=== PATIENT | female | born 1940 | race Two or more races ===

== ENCOUNTER 2022-07-16 23:04 | Emergency (ER) | payer BC, OTHER ==
[~2022-07-16] VITALS: Ht 162.6 cm; Wt 54.4 kg
--- NOTE | 2022-07-16 23:30 | NUR ---
[facility] AND SON FROM [facility] FOR C/O ABD PAIN X 3 DAYS. KUB RESULT 07/13. NON- OBSTRUCTIVE BOWEL GAS PATTERN SHOWED. PATIENT IS AAOX4. HARD TO SPEAK. WEAKNESS OF RIGHT SIDE OF BODY. ATTACHED TO MONITOR. VITALS CHECKED.
[2022-07-17] MEDS ORDERED: ONDANSETRON HCL/PF 4 MG/2 ML VIAL ONE (00:05)
[2022-07-17] MEDS ORDERED: MORPHINE SULFATE INJ 2 MG/ML DISP.SYRIN ONE (00:05)
--- NOTE | 2022-07-17 00:23 | NUR ---
IV CANNULA G20 INSERTED ON LEFT AC. IVF ATTACHED
--- NOTE | 2022-07-17 00:23 | NUR ---
BROUGHT TO [facility] DEPT
[2022-07-17] MEDS: ONDANSETRON HCL/PF 4 MG/2 ML VIAL IVP ONE (00:29)
[2022-07-17] MEDS: MORPHINE SULFATE INJ 2 MG/ML DISP.SYRIN IV ONE (00:29)
[2022-07-17] MEDS: IV NS 0.9% 500 ML BAG IV ONE (00:29)
[2022-07-17 00:39] LABS: BASOPHILS % (AUTO) 0.4 % (0.0-2.0); EOSINOPHILS % (AUTO) 0.5 % (0.0-6.0); HEMATOCRIT 38 % (33-45); HEMOGLOBIN 12.2 g/dL (11.5-14.8); LYMPHOCYTES # (AUTO) 2.1 K/uL (0.8-4.8); LYMPHOCYTES % (AUTO) 26.2 % (20.0-44.0); MEAN CORPUSCULAR HGB CONC 33 g/dl (31.0-36.0); MEAN CORPUSCULAR VOLUME 85 fL (82-100); MONOCYTES # (AUTO) 0.8 K/uL (0.1-1.30); MONOCYTES % (AUTO) 10.4 % (2.0-12.0); NEUTROPHILS % (AUTO) 62.5 % (43.0-81.0); PLATELET COUNT (AUTO) 252 K/uL (150-450); RED BLOOD CELL COUNT(AUTO) 4.42 MIL/uL (4.0-5.2)
[2022-07-17 01:00] LABS: CALCIUM, SERUM 8.9 mg/dL (8.5-10.1); CARBON DIOXIDE 35 mmol/L (21-32); CHLORIDE 106 mmol/L (98-107); CREATININE 0.6 mg/dL (0.6-1.3); GLUCOSE 108 mg/dL (74-106); POTASSIUM 3.3 mmol/L (3.5-5.1); SODIUM SERUM 143 mmol/L (136-145); UREA NITROGEN, BLOOD 13 mg/dL (7-18)
[2022-07-17 01:06] LABS: ALANINE AMINOTRANSFERASE 9 U/L (12-78); ALBUMIN 2.2 g/dL (3.4-5.0); ALKALINE PHOSPHATASE 55 U/L (46-116); ASPARTATE AMINOTRANSFERASE 14 U/L (15-37); BILIRUBIN,DIRECT 0.1 mg/dL (0.0-0.2); BILIRUBIN,TOTAL 0.4 mg/dL (0.2-1.0); LIPASE 67 U/L (73-393); TOTAL PROTEIN, SERUM 5.5 g/dL (6.4-8.2)
--- NOTE | 2022-07-17 01:59 | NUR ---
KIZZY GOMEZ, SON,
[2022-07-17 02:50] LABS: BILIRUBIN,URINE NEGATIVE (NEGATIVE); COLOR,URINE YELLOW (YELLOW); LEUKOCYTE ESTERASE ,URINE NEGATIVE (NEGATIVE); NITRITE, URINE POSITIVE (NEGATIVE); PH,URINE 5.5 (5.0-8.0); PROTEIN,URINE TRACE mg/dl (NEGATIVE); UGLUCOSE NEGATIVE (NEGATIVE); UROBILINOGEN,URINE 0.2 EU/dL (0.2)
[2022-07-17 02:57] LABS: BACTERIA,URINE Few /HPF (None Seen); SQUAMOUS EPITHELIAL CELL,UR Moderate /HPF (None Seen)
[2022-07-17] MEDS ORDERED: LEVOFLOXACIN 750 MG /D5W 150ML 150 ML IV ONE (03:22)
[2022-07-17] MEDS: LEVOFLOXACIN 750 MG /D5W 150ML PIGGYBACK IV ONE (03:25)
[2022-07-17] MEDS ORDERED: METRONIDAZOLE 500 MG TABLET PO ONE ×2 (03:30)
[2022-07-17] MEDS ORDERED: LEVOFLOXACIN (250MG) 250 MG TABLET PO SCH (03:30)
[2022-07-17] MEDS ORDERED: METRONIDAZOLE 500MG/ NS 100ML 100 ML IV ONE (03:45)
[2022-07-17] MEDS: FLAGYL/NS RTU 500 MG/100 ML PIGGYBACK IV ONE (03:48)
[2022-07-17] MEDS ORDERED: METR500T PO (04:11)
[2022-07-17] MEDS ORDERED: LEVO750T46 PO (04:11)
--- NOTE | 2022-07-17 04:13 | NUR ---
PATIENT FOR DISCHARGE. WILL ARRANGE TRANSPORTATION BACK TO SNF
--- NOTE | 2022-07-17 04:15 | NUR ---
CALLED SON AND LEFT A MESSAGE RE PT'S DISCHARGE
--- NOTE | 2022-07-17 04:18 | NUR ---
[facility] ETA: 45-60 MIN
--- NOTE | 2022-07-17 04:20 | NUR ---
REPORT GIVEN TO STAFF OF [facility].
--- NOTE | 2022-07-17 05:27 | NUR ---
[facility] AT BED SIDE TO [facility] THE PT. REPORT GIVEN
--- NOTE | 2022-07-17 05:34 | NUR ---
REPORT GIVEN TO JOSEPHINE. [facility]
--- NOTE | 2022-07-17 05:35 | NUR ---
IV CANNULA REMOVED
--- NOTE | 2022-07-17 06:14 | NUR ---
TRANSFERRED BACK TO SNF.
[2022-07-17 06:16] VITALS: BP 116/68
== END 2022-07-17 06:17 ==
LOC: ER 23:06
DX: K52.9 Noninfective gastroenteritis and colitis, unspecified (principal); N39.0 Urinary tract infection, site not specified; I10 Essential (primary) hypertension; E78.5 Hyperlipidemia, unspecified; Z87.19 Personal history of other diseases of the digestive system; Z86.69 Personal history of other diseases of the nervous system and sense organs; Z86.16 Personal history of COVID-19; Z88.0 Allergy status to penicillin; Z88.8 Allergy status to other drugs, medicaments and biological substances; Z79.899 Other long term (current) drug therapy
CPT/HCPCS: 99285; 74176; 93005; 85025; 80048; 83690; 80076; 36415 ×2; 84484 ×2; 96365; 71045; 96375; 96361; 96368; 81001; J2405; J7040; J1956; J2270; 87086-TC; 87186-TC